=== PATIENT | male | born 1980 | race Caucasian/White ===

== ENCOUNTER 2024-11-14 09:27 | Inpatient (IN) | payer SELFPAY ==
[~2024-11-14] VITALS: Ht 170.2 cm; Wt 85.3 kg
[2024-11-14] MEDS ORDERED: DEXT 5%/0.9% NACL 1,000 ML IV NR (10:15)
[2024-11-14 10:22] LABS: BASOPHILS % 0.3 % (0.0-2.0); EOSINOPHILS % 0.1 % (0.0-5.0); HEMOGLOBIN. 13.4 g/dL (14.0-18.0); LYMPHOCYTES % 9.4 % (20.0-50.0); MEAN CORPUSCULAR HGB CONC 34.5 g/dL (31.0-37.0); MEAN CORPUSCULAR VOLUME 98.7 fL (80.0-94.0); MEAN PLATELET VOLUME 7.6 fl (7.4-10.4); MONOCYTES % 9.8 % (2.0-8.0); NEUTROPHILS % 80.4 % (40.0-76.0); PLATELET 342 x1000/uL (130-400); RED BLOOD CELL COUNT 3.95 mill/uL (4.7-6.1); WHITE BLOOD COUNT 7.6 x1000/uL (4.5-11.0)
[2024-11-14 10:37] LABS: D-DIMER 0.77 mg/L FEU (<0.50); PROTHROMBIN TIME 11.1 sec (9.6-11.0)
[2024-11-14 10:44] LABS: CARBON DIOXIDE 24 mEq/L (21-32); CHLORIDE 91 mEq/L (98-107); POTASSIUM 3.7 mEq/L (3.5-5.1); SODIUM 128 mEq/L (136-145)
[2024-11-14 10:45] LABS: CALCIUM 9.3 mg/dL (8.7-10.4)
[2024-11-14 10:49] LABS: CREATININE 0.9 mg/dL (0.6-1.3); GLUCOSE 117 mg/dL (70-105)
[2024-11-14 10:50] LABS: UREA NITROGEN BLOOD 5 mg/dL (9-23)
[2024-11-14 10:51] LABS: LACTATE DEHYDROGENASE 329 IU/L (120-246)
[2024-11-14 10:54] LABS: THYROID STIMULATING HORMONE 0.55 uIU/mL (0.55-4.78)
[2024-11-14 10:57] LABS: LACTIC ACID 3.2 mmol/L (0.4-2.0)
[2024-11-14] MEDS: MAGNESIUM 2 G PREMIX 50 ML IV NR (11:38)
[2024-11-14] MEDS: CHLORDIAZEPOXIDE 5 MG CAPSULE PO SCH (11:57)
[2024-11-14] MEDS: FOLIC ACID 1 MG, THIAMINE HCL 100 MG, MVI, ADULT NO.1 10 ML in DEXTROSE 5% WATER 1,000 ML IV ONE (14:35)
[2024-11-14] MEDS ORDERED: ONDANSETRON HCL 4MG/2ML INJ IV PRN (14:45)
[2024-11-14] MEDS ORDERED: ACETAMINOPHEN 325MG TABLET PO PRN (14:45)
[2024-11-14] MEDS: LORAZEPAM 1MG TABLET PO PRN (14:56)
[2024-11-14 17:41] VITALS: BP 120/80; PULSE 108; RESP 18; TEMP 36.9184
[2024-11-14 17:48] VITALS: BP 120/80; PULSE 108; RESP 18; TEMP 36.89184; O2SAT 100
[2024-11-14 20:00] VITALS: BP 126/78; PULSE 94; RESP 17; TEMP 36.16956; O2SAT 99
[2024-11-14] MEDS: CHLORDIAZEPOXIDE 25MG CAPSULE PO SCH (21:25)
[2024-11-15] VITALS: BP 122/80; PULSE 67; RESP 20; TEMP 36.61404; O2SAT 98
[2024-11-15 04:00] VITALS: BP 128/72; PULSE 65; RESP 19; TEMP 36.61404; O2SAT 97
[2024-11-15 05:35] LABS: CLARITY URINE CLEAR (CLEAR); COLOR URINE YELLOW (YELLOW); GLUCOSE URINE NEGATIVE (NEGATIVE); KETONES URINE NEGATIVE (NEGATIVE); LEUKOCYTE ESTERASE URINE NEGATIVE (NEGATIVE); NITRITE URINE NEGATIVE (NEGATIVE); OCCULT BLOOD URINE NEGATIVE (NEGATIVE); PROTEIN URINE NEGATIVE (NEGATIVE); SPECIFIC GRAVITY URINE 1.006 (1.005-1.030)
[2024-11-15 06:01] LABS: *AMPHETAMINES SCREEN URINE NEGATIVE (NEGATIVE); *BARBITURATES SCREEN URINE NEGATIVE (NEGATIVE); *BENZODIAZEPINES SCREEN URINE PRESUMPTIVE POSITIVE (NEGATIVE); *COCAINE SCREEN URINE NEGATIVE (NEGATIVE); CANNABINOID URINE SCREEN PRESUMPTIVE POSITIVE (NEGATIVE); ECSTASY MDMA SCREEN URINE NEGATIVE (NEGATIVE); METHADONE URINE SCREEN NEGATIVE (NEGATIVE); OPIATES URINE SCREEN NEGATIVE (NEGATIVE); PHENCYCLIDINE URINE SCREEN NEGATIVE (NEGATIVE)
[2024-11-15 08:00] VITALS: BP 130/90; PULSE 88; RESP 18; TEMP 36.44736; O2SAT 98
[2024-11-15 12:00] VITALS: BP 136/94; PULSE 107; RESP 18; TEMP 36.44736; O2SAT 18
[2024-11-15] MEDS ORDERED: CHLO25CA11 MT (13:13)
[2024-11-15 13:35] VITALS: BP 140/84; PULSE 92; TEMP 98.2; O2SAT 100
== END 2024-11-15 12:10 | disposition home or self-care (01) | DRG 48 ==
LOC: ER 09:27 → 7EST 13:53 → EDBEDREQ 14:09 → EDBEDREQTM 14:09
PROVIDERS: ADMIT Internal Medicine; ATTEND Internal Medicine
DX: G90.89 Other disorders of autonomic nervous system (principal); E87.1 Hypo-osmolality and hyponatremia; F10.139 Alcohol abuse with withdrawal, unspecified; I10 Essential (primary) hypertension; Z79.899 Other long term (current) drug therapy
CPT/HCPCS: 36415; 71045; 80048; 80305; 81003; 83605; 83615; 83735; 83880; 84100; 84145; 84443; 85025; 85379; 93005; 99285; A4606; A4663; J3411; J3475; J3490; J7070